=== PATIENT | female | born 1940 | race Caucasian/White ===

== ENCOUNTER 2021-02-25 07:24 | Day surgery (SDC) | payer OTHER ==
[2021-02-21 13:42] VITALS: BMI 18.6
[2021-02-25] MEDS ORDERED: MIDAZOLAM HCL 2 MG/2 ML SINGLE DOSE VIAL ONE (09:22)
[2021-02-25] MEDS ORDERED: PROPOFOL 20 ML ONE ×2 (09:23→10:29)
[2021-02-25] MEDS ORDERED: ERYTHROMYCIN 0.5% OPHTHALMIC OINTMENT 3.5 GM TUBE ONE (09:27)
[2021-02-25] MEDS ORDERED: TETRACAINE 0.5% OPHTH SOLN 2 ML BOTTLE ONE (09:27)
[2021-02-25] MEDS ORDERED: BUPIVACAINE HCL 50 ML ONE (09:27)
[2021-02-25] MEDS ORDERED: LIDOCAINE 1%/EPI 1:100000 (20 ML MULTI DOSE VIAL) ONE (09:27)
[2021-02-25] MEDS ORDERED: POVIDONE-IODINE 5% OPHTHALMIC PREP 30 ML SOLUTION ONE (09:27)
[2021-02-25] MEDS ORDERED: ceFAZolin SODIUM 1 GM VIAL ONE (09:50)
[2021-02-25] MEDS ORDERED: DEXAMETHASONE SOD PHOSPHATE 4 MG/1 ML VIAL ONE (09:57)
[2021-02-25] MEDS ORDERED: ONDANSETRON 4 MG/2 ML VIAL ONE (09:57)
[2021-02-25] MEDS ORDERED: oxyCODONE HCL 5 MG TABLET PO PRN (10:55)
[2021-02-25] MEDS ORDERED: ONDANSETRON 4 MG/2 ML VIAL IVPUSH PRN (10:55)
[2021-02-25] MEDS ORDERED: LACTATED RINGERS SOLUTION 1,000 ML IV SCH (11:00)
[2021-02-25 11:11] VITALS: TEMP 97.7
[2021-02-25 12:09] VITALS: BP 113/62; PULSE 68
== END 2021-02-25 12:05 | disposition home or self-care (01) ==
LOC: FASU 07:24
PROVIDERS: ATTEND Ophthalmology
PROC: 0JB10ZZ Excision of Face Subcutaneous Tissue and Fascia, Open Approach (ICD-10-PCS; principal; 2021-02-25 10:01)
DX: H02.035 Senile entropion of left lower eyelid (principal); H16.292 Other keratoconjunctivitis, left eye
CPT/HCPCS: 94760